=== PATIENT | male | born 1985 | race African-American/Black ===

== ENCOUNTER 2017-08-30 07:51 | Emergency (ER) | payer OTHER, MEDICAID ==
[~2017-08-30] VITALS: Ht 177.8 cm; Wt 74.8 kg
[2017-08-30 08:09] VITALS: BP 122/78
[2017-08-30] MEDS ORDERED: METHOCARBAMOL 500 MG TAB PO ONE (08:45)
[2017-08-30] MEDS ORDERED: IBUPROFEN 800 MG TAB PO ONE (08:45)
== END 2017-08-30 09:11 | disposition home or self-care (01) ==
LOC: ER 07:51
DX: S16.1XXA Strain of muscle, fascia and tendon at neck level, initial encounter (principal); V43.62XA Car passenger injured in collision with other type car in traffic accident, initial encounter; Y93.89 Activity, other specified; Y99.8 Other external cause status; Y92.89 Other specified places as the place of occurrence of the external cause